=== PATIENT | female | born 1930 | race Caucasian/White ===

== ENCOUNTER 2016-07-30 10:08 | Inpatient (IN) | payer OTHER ==
[~2016-07-30 10:08] MED LIST: ACETAMINOPHEN 325 MG TAB PO ONE; CEFAZOLIN 2 GM/DEXTR 100 ML IV ONE; CHLORHEXIDINE GLUC HIBICLENS 118 ML BTL TP ONE; DEXAMETHASONE 4 MG/ML VIAL IVP ONE; FAMOTIDINE 20 MG TAB PO ONE; ROPI/epiNEPH/KETOROLAC JOINT COCKTAIL IU ONE; TRANEXAMIC ACID 3,000 MG in NS 50 ML IRR ONE; TRANEXAMIC ACID 3,000 MG/50 ML BAG IRR ONE
[2016-07-30] MEDS ORDERED: LIDOCAINE 1% 2 ML INJ ONE (10:58)
[2016-07-30] MEDS ORDERED: FAMOTIDINE 20 MG TAB ONE (10:59)
[2016-07-30] MEDS ORDERED: CEFAZOLIN 2 GM/DEXTROSE/100 ML BAG IV ONE (10:59)
[2016-07-30] MEDS ORDERED: DEXAMETHASONE 4 MG/ML VIAL ONE (10:59)
[2016-07-30] MEDS ORDERED: ACETAMINOPHEN 325 MG TAB ONE (10:59)
[2016-07-30] MEDS ORDERED: LR 1,000 ML IV ONE (11:08)
[2016-07-30] MEDS ORDERED: LIDOCAINE 1% 5 ML SDV ID PRN (11:08)
[2016-07-30] MEDS ORDERED: MIDAZOLAM 2 MG/2 ML VIAL ONE (11:47)
[2016-07-30] MEDS ORDERED: PROPOFOL/EMULSION 500 MG/50 ML BOTTLE IV ONE (12:06)
[2016-07-30 12:12] LABS: INR 1.21 (0.83-1.16); PROTIME(PATIENT) 15.3 SEC (12.0-15.0)
[2016-07-30] MEDS ORDERED: fentaNYL 100 MCG/2 ML INJ ONE (12:17)
[2016-07-30] MEDS ORDERED: epHEDrine SULFATE 10 MG/ML SYR ONE (13:04)
[2016-07-30] MEDS ORDERED: ONDANSETRON 4 MG/2 ML VIAL ONE (13:28)
[2016-07-30] MEDS ORDERED: BISACODYL 10 MG SUPP PR PRN (13:52)
[2016-07-30] MEDS ORDERED: PROMETHAZINE HCL 25 MG/ML INJ IVP PRN (13:52)
[2016-07-30] MEDS ORDERED: DIPHENOXYLATE/ATROPINE LOMOTIL 1 TAB PO PRN (13:52)
[2016-07-30] MEDS ORDERED: PHARMACY PAIN CONSULT 1 EA MISC PRN (13:52)
[2016-07-30] MEDS ORDERED: CYCLOBENZAPRINE 10 MG TAB PO PRN (13:52)
[2016-07-30] MEDS ORDERED: diphenhydrAMINE 25 MG CAP PO PRN (13:52)
[2016-07-30] MEDS ORDERED: PROMETHAZINE HCL 25 MG SUPPR PR PRN (13:52)
[2016-07-30] MEDS ORDERED: ONDANSETRON DISINTEGRATING 4 MG TAB PO PRN (13:52)
[2016-07-30] MEDS ORDERED: ONDANSETRON 4 MG/2 ML VIAL IVP PRN (13:52)
[2016-07-30] MEDS ORDERED: MAGNESIUM HYDROXIDE 30 ML UDCUP PO PRN (13:52)
[2016-07-30] MEDS ORDERED: POLYETHYLENE GLYCOL 3350 17 GM PKT PO PRN (13:52)
[2016-07-30] MEDS ORDERED: TEMAZEPAM 15 MG CAP PO PRN (13:52)
[2016-07-30] MEDS ORDERED: METOCLOPRAMIDE 10 MG/2 ML VIAL IVP PRN (13:52)
[2016-07-30] MEDS ORDERED: LACTULOSE 20 GM/30 ML UDCUP PO PRN (13:52)
--- NOTE | 2016-07-30 13:52 | POSTOPPROG ---
Post Op Note Date of Operation: 07/30/16 Surgeon: Olivia Henning Perinatal Breastfeeding Assistant: chel henning Anesthesiologist: dr. cortes Anesthesia: Spinal, Other (Specify) Pre-op Diagnosis: Left hip OA Post-op Diagnosis: geovany,e Indication: left hip pain due to OA that failed conservative measures Procedure: L PATRIZIA ant approach Findings: severe hip OA Inf/Abcess present in the surg proc area at time of surgery?: No EBL: 100-500
[2016-07-30] MEDS ORDERED: traMADol 50 MG TAB PO PRN (13:53)
[2016-07-30] MEDS ORDERED: GABAPENTIN 300 MG CAP PO PRN (13:53)
[2016-07-30] MEDS ORDERED: LR 1,000 ML IV SCH (14:00)
[2016-07-30] MEDS: oxyCODONE IR 5 MG TAB PO PRN ×2 (17:24→23:06)
[2016-07-30] MEDS: WARFARIN SODIUM 5 MG TAB PO SCH (17:25)
[2016-07-30] MEDS: ACETAMINOPHEN 325 MG TAB PO SCH ×2 (17:25→23:07)
[2016-07-30] MEDS: ceFAZolin 2 GM/DEXTROSE 100 ML IV SCH (20:27)
[2016-07-30] MEDS: FAMOTIDINE 20 MG TAB PO SCH (20:31)
[2016-07-30] MEDS: SENNOSIDES/DOCUSATE SODIUM TAB PO SCH (20:31)
[2016-07-31] MEDS: ceFAZolin 2 GM/DEXTROSE 100 ML IV SCH (04:30)
--- NOTE | 2016-07-31 05:28 | GOP ---
[f rep st] OPERATIVE REPORT DATE OF OPERATION: 07/30/2016 SURGEON: Italo Guzman MD FINANCIAL DEVELOPER: RUBEN Baca ANESTHESIA: Spinal. PREOPERATIVE DIAGNOSIS: Left hip osteoarthritis. POSTOPERATIVE DIAGNOSIS: Left hip osteoarthritis. PROCEDURE PERFORMED: Left total hip arthroplasty with x-ray. FINDINGS: ESTIMATED BLOOD LOSS: 300 cc. INDICATIONS: The patient has progressively worsening arthritis of the hip which has failed medical management. The patient understands the treatment options including continued non-operative care an d has selected surgical intervention. The patient has decided to undergo total hip arthroplasty via the direct anterior approach, understanding the risks of the procedure including, but not limited t o, neurovascular injury, infection, persistent pain, component wear and loosening, deep venous throm bosis, pulmonary embolism, limb length inequality, hip instability (including dislocation), and intr a-operative fractures. DESCRIPTION OF PROCEDURE: After proper identification of the patient including verification and mar vinicius the surgical site, the patient was brought to the operating room and placed in the supine posit ion. All bony prominences were well padded. Anesthesia was induced without complication and intrav enous prophylactic antibiotics were administered prior to skin incision. The operative leg was placed in the Trumpf Arch table extension and the well leg in a [place] leg h older. The patient was prepped and draped in the usual sterile fashion. The C-arm was draped for i ntra-operative fluoroscopy to check acetabular position, femoral component position including leg le ngth and femoral offset. Attention was then drawn to surgical exposure of the hip. An incision was made with a #10 [place] er blade starting 3 cm lateral and 3 cm distal to the anterior superior iliac spine measuring 8-10 c m and coursing distally toward the greater trochanter. The skin and subcutaneous tissues were divid ed sharply down to the fascia romero. The fascia romero was incised in line with the skin incision expo sing the underlying tensor fascia romero muscle. The muscle was bluntly elevated from the fascia and the first extracapsular Cobra retractor was placed laterally at the junction of the superior femoral neck and greater trochanter. The lateral femoral circumflex vessels were identified, cauterized, a nd divided with the Aquamantys bipolar cautery. The deep investing fascia of the TFL was divided to allow proper mobilization of the muscle preventing damage during the retraction. The reflected hea d of the rectus femoris muscle was elevated off the anterior hip capsule and a medial Cobra retracto r was placed just proximal to the lesser trochanter. The anterior capsulotomy was made sharply from the superolateral acetabulum to the saddle junction o f the superior femoral neck and greater trochanter, then coursing inferomedial towards the lesser tr ochanter. The retractors were then placed in the intracapsular position for femoral neck osteotomy. Corresponding to pre-operative templating, the osteotomy was made with the oscillating saw careful ly protecting the greater trochanter and soft tissues. The femoral head was removed from the acetab ulum with a corkscrew and confirmed to be severely arthritic with exposed bone, deformity and osteop hytes. Similar findings were confirmed in the acetabulum. The Arch table extension was then placed in 40 degrees external rotation. Attention was then drawn to the acetabular preparation. After placement of the anterior and posteri or Cobra retractors outside the labrum and intracapsular, the circumferential labrum was removed sha rply. The foveal contents were then removed and hemostasis obtained with cautery. The first reamer selected was sized using the removed femoral head. Reaming began with medializatio n and then commenced in 2 mm increments at 45 degrees of abduction and 15 degrees of anteversion usi ng fluoroscopic navigation. Reaming ceased 1 mm less than the definitive acetabular component and c orresponded to the pre-operative templating. The final acetabular component was inserted using fluo roscopy to achieve proper orientation yielding excellent purchase and stability in the acetabulum. The final acetabular liner was then placed and its seating confirmed. Attention was then turned to the femur. The Arch table extension was placed in extension and adduct ion, delivering the osteotomized femoral neck into the wound. A 2-pronged femoral elevator was plac ed at the calcar and another at the tip of the greater trochanter. The posterolateral capsule was r eleased with cautery allowing mobilization of the femur lateral and anterior for preparation. The e xternal rotators were visualized and preserved. A curette and rongeur were used to open the startin g point for broaching. Serial broaching started with the #0 broach and ended with the broach that e xhibited excellent fit in the proximal femur. A change in pitch during mallet strikes was accompani ed by the inability to advance the broach any further. The trial reduction was performed and fluoro scopic navigation was utilized to check limb length. Adjustments were made to equalize limb length accordingly. After the final trials were accepted they were removed and the wound was copiously lavaged. The fem oral component was seated to the same depth as the final broach and the femoral head was impacted on to the clean trunnion. The hip was then reduced for the final time and once more fluoroscopy was us ed to check that limb length equality was achieved. The wound was irrigated and closed in layers, the fascia romero with 2-0 Quill, the subcutaneous tissu e with 2-0 Quill, and the skin with Dermabond. Sterile dressings were applied. Final sharps and sp onge counts were accurate. The patient was then transferred to a hospital bed and brought to the re covery room in stable condition. IMPLANTS: Accolade II, size 5, at 127. Acetabular component is a 15 mm Tritanium. Liner is a Trid ent X3, 32 mm. The head is a Biolox Delta 32 mm, -4. /[id number]/MODL
[2016-07-31] MEDS: ACETAMINOPHEN 325 MG TAB PO SCH ×4 (05:40→23:31)
[2016-07-31 05:44] LABS: HEMATOCRIT 31.9 % (38.0-47.0); HEMOGLOBIN 9.9 g/dL (12.6-16.3)
[2016-07-31 05:55] LABS: INR 1.4 (0.83-1.16); PROTIME(PATIENT) 17.1 SEC (12.0-15.0)
[2016-07-31 06:22] LABS: ANION GAP 7 mEq/L (8-16); CALCIUM 8.6 mg/dL (8.5-10.4); CARBON DIOXIDE 25 mEq/l (22-31); CHLORIDE 108 mEq/L (97-110); CREATININE 0.9 mg/dL (0.6-1.0); GLOMERULAR FILTRATION RATE 60; GLUCOSE 120 mg/dL (70-100); POTASSIUM 3.6 mEq/L (3.5-5.2); SODIUM 140 mEq/L (134-144)
[2016-07-31] MEDS: FAMOTIDINE 20 MG TAB PO SCH ×2 (08:03→21:10)
[2016-07-31] MEDS: TRIAMTERENE/HCTZ 37.5/25 1 EACH CAP PO SCH (08:03)
[2016-07-31] MEDS: oxyCODONE IR 5 MG TAB PO PRN ×4 (08:03→23:30)
[2016-07-31] MEDS: SENNOSIDES/DOCUSATE SODIUM TAB PO SCH ×2 (08:03→21:10)
[2016-07-31] MEDS ORDERED: ENOXAPARIN 40 MG/0.4 ML SYR SC SCH (09:00)
[2016-07-31 11:20] VITALS: RESP 16
[2016-07-31] MEDS: WARFARIN SODIUM 5 MG TAB PO SCH (15:47)
--- NOTE | 2016-07-31 19:48 | SOAPPROG ---
SOAP Progress Note Assessment/Plan: Assessment: Analia is doing ok POD 1 s/p L PATRIZIA 1) pain management: pain is well controlled on oral pain meds 2) VTE ppx: recommend resuming coumadin and lovenox. INR this morning 1.4. Recommend stopping lovenox. continue coumadin. 3) anemia: level expected initially postop, continue to monitor. 4) d/c planning: recommend another night in the hospital. Reassess in the morning. Most likely SNF tomorrow. Plan: 07/31/16 19:45 Subjective: Analia is doing ok this morning, states she is tired, denies SOB, chest pain and N /v. Objective: Vital Signs Temp Pulse Resp BP Pulse Ox 36.6 C 73 16 84/59 L 99 07/31/16 15:59 07/31/16 15:59 07/31/16 15:59 07/31/16 15:59 07/31/16 15:59 Laboratory Results 07/31/16 04:37 07/31/16 04:37 07/30/16 07/31/16 08/01/16 05:59 05:59 05:59 Intake Total 1150 200 Output Total 1000 300 Balance 150 -100 PT 17.1 SEC (12.0-15.0) H 07/31/16 04:37 INR 1.40 (0.83-1.16) H 07/31/16 04:37 LLE: incision dressing is clean and dry, NVI, +pf/df ICD10 Worksheet Patient Problems: Problems Problem Status Onset Cancer of descending colon Acute Chronic Disease Mgmt/Transitional Care Acute Gastrointestinal hemorrhage on warfarin therapy Acute Incisional hernia Acute Wound infection after surgery Acute
[2016-08-01 04:25] VITALS: PULSE 80
[2016-08-01 05:19] LABS: HEMOGLOBIN 8.1 g/dL (12.6-16.3)
[2016-08-01 05:41] LABS: INR 1.92 (0.83-1.16); PROTIME(PATIENT) 22.1 SEC (12.0-15.0)
[2016-08-01] MEDS: ACETAMINOPHEN 325 MG TAB PO SCH ×2 (05:42→12:36)
[2016-08-01 08:31] VITALS: BP 113/63; TEMP 98.3; O2SAT 100
[2016-08-01] MEDS: TRIAMTERENE/HCTZ 37.5/25 1 EACH CAP PO SCH (09:56)
[2016-08-01] MEDS: oxyCODONE IR 5 MG TAB PO PRN (09:56)
[2016-08-01] MEDS: SENNOSIDES/DOCUSATE SODIUM TAB PO SCH (09:58)
[2016-08-01 10:01] LABS: ANION GAP 7 mEq/L (8-16); CALCIUM 8.6 mg/dL (8.5-10.4); CARBON DIOXIDE 25 mEq/l (22-31); CHLORIDE 109 mEq/L (97-110); CREATININE 0.8 mg/dL (0.6-1.0); GLOMERULAR FILTRATION RATE > 60; GLUCOSE 85 mg/dL (70-100); POTASSIUM 3.6 mEq/L (3.5-5.2); SODIUM 141 mEq/L (134-144)
[2016-08-01] MEDS: FAMOTIDINE 20 MG TAB PO SCH (11:29)
--- NOTE | 2016-08-01 12:47 | PDIAF ---
- Diagnosis Code Status: Full Code - Medication Management Discharge Medications: Medications to Continue on Transfer C/E/Zn/Cu/OM3/DHA/EPA/LUT/ZEAX [Preservision Areds 2 Softgel] 1 cap PO BID 08/12 [Last Taken 07/23/16] Cholecalciferol Vit D3 [Vitamin D3 (*)] 2,000 units PO Q2D 08/12/14 [Last Taken 07/23/16] Gabapentin [Neurontin 300 MG (*)] 300 mg PO DAILY PRN 08/12/14 [Last Taken 07/12] Hydrocodone/Acetaminophen [[place] 5/325 (*)] 1 tab PO QID PRN 08/12/14 [Last Taken 07/29/16 19:30] Triamterene/Hctz 37.5/25 [Dyazide 37.5/25 (*)] 1 cap PO DAILY 08/12/14 [Last Taken 07/29/16] Polyethylene Glycol 3350 [Miralax 17 gm (*)] 17 gm PO DAILY PRN 07/21/16 [Last Taken 07/29/16 19:00] Warfarin Sodium [Coumadin 2.5MG (*)] 2.5 mg PO SUMOWEFRSA@16 07/21/16 [Last Taken 07/20/16] Warfarin Sodium [Coumadin 5MG (*)] 5 mg PO TUTH@16 07/21/16 [Last Taken 07/17/16 ] traMADol [Ultram 50 mg (*)] 100 mg PO QID PRN 07/21/16 [Last Taken 07/29/16 19: 00] Discharge Medications: Refer to the Discharge Home Medication list for PRN reason. - Orders Services needed: Registered Nurse, Physical Therapy, Occupational Therapy Diet Recommendation: no restrictions on diet - Follow Up Care Current Providers and Referrals: Olivia Guzman MD [Medical Doctor] - 08/21/16 8:00 am Rohith Baez MD [Primary Care Provider] -
[2016-08-01] MEDS ORDERED: WARFARIN SODIUM 2.5 MG TAB PO SCH (16:00)
--- NOTE | 2016-08-01 21:03 | GDS ---
[f rep st] DISCHARGE SUMMARY ADMISSION DIAGNOSIS: Left hip osteoarthritis. DISCHARGE DIAGNOSIS: Left hip osteoarthritis. PROCEDURE: Left total hip arthroplasty. VTE PROPHYLAXIS: Recommend Coumadin and Lovenox. BRIEF DESCRIPTION OF HOSPITAL STAY: Patient was admitted for an elective joint arthroplasty. The p atient tolerated the procedure well and has passed physical therapy. The patient was given appropri ate antibiotic prophylaxis and venous thromboembolism prophylaxis. The patient's pain was well cont rolled on oral pain medication, patient was holding down food, and had urinated. Decision was made to discharge the patient. The patient was given post-operative prescriptions pre-operatively. PLAN: Please follow up as scheduled at Dr. Guzman's office August 21 at 8 a.m. /[id number]/MODL
[2016-08-05] MEDS ORDERED: WARFARIN SODIUM 5 MG TAB PO SCH (16:00)
== END 2016-08-01 13:06 | DRG 470 ==
LOC: F3N 10:08
PROVIDERS: ADMIT Orthopaedic Surgery; ATTEND Orthopaedic Surgery
PROC: 0SRB04Z Replacement of Left Hip Joint with Ceramic on Polyethylene Synthetic Substitute, Open Approach (ICD-10-PCS; principal; 2016-07-30 12:15)
DX: M16.12 Unilateral primary osteoarthritis, left hip (principal); G50.0 Trigeminal neuralgia; Z86.718 Personal history of other venous thrombosis and embolism; Z85.038 Personal history of other malignant neoplasm of large intestine
CPT/HCPCS: 97110-GP; 97116-GP; 97162-GP; 97165-GO; G8978-GP-CK; G8979-GP-CI; G8980-GP-CJ; G8987-GO-CK; G8988-GO-CJ; J0171; J0690; J1100; J1885; J2250; J2405; J2704; J2795; J3010

== ENCOUNTER 2016-10-14 10:39 | Outpatient (CLI) | payer OTHER ==
[2016-10-14] MEDS ORDERED: NALOXONE HCL 0.4 MG/ML INJ ONE (11:42)
[2016-10-14] MEDS ORDERED: FLUMAZENIL 0.5 MG/5 ML MDV IVP ONE (11:42)
[2016-10-14] MEDS ORDERED: ONDANSETRON 4 MG/2 ML VIAL ONE (11:42)
[2016-10-14] MEDS ORDERED: MIDAZOLAM 2 MG/2 ML VIAL ONE (11:43)
[2016-10-14] MEDS ORDERED: fentaNYL 100 MCG/2 ML INJ ONE ×2 (11:43)
[2016-10-14] MEDS ORDERED: GADOBUTROL 10 ML VIAL IVP ONE (11:47)
== END 2016-10-14 13:45 | disposition home or self-care (01) ==
LOC: FIMAGING 10:39
PROVIDERS: ATTEND Psychiatry & Neurology Neurology
DX: G50.0 Trigeminal neuralgia (principal); Z85.9 Personal history of malignant neoplasm, unspecified
CPT/HCPCS: 70553; A9585; J3010; J2250; J2310; J2405

== ENCOUNTER → 2016-10-30 | Outpatient (CLI) | payer OTHER ==
[~2016-10-30] MED LIST changes: -ACETAMINOPHEN 325 MG TAB PO ONE; -CEFAZOLIN 2 GM/DEXTR 100 ML IV ONE; -CHLORHEXIDINE GLUC HIBICLENS 118 ML BTL TP ONE; -DEXAMETHASONE 4 MG/ML VIAL IVP ONE; -FAMOTIDINE 20 MG TAB PO ONE; +IOPAMIDOL (ISOVUE-300) 100 ML BTL ONE; -ROPI/epiNEPH/KETOROLAC JOINT COCKTAIL IU ONE; -TRANEXAMIC ACID 3,000 MG in NS 50 ML IRR ONE; -TRANEXAMIC ACID 3,000 MG/50 ML BAG IRR ONE
== END ==
LOC: FIMAGING 09:54
PROVIDERS: ATTEND Otolaryngology
DX: K11.9 Disease of salivary gland, unspecified (principal); R93.8 Abnormal findings on diagnostic imaging of other specified body structures
CPT/HCPCS: 70491; Q9967

== ENCOUNTER → 2016-11-11 | Outpatient (CLI) | payer OTHER ==
[~2016-11-11] MED LIST changes: +GADOBUTROL 10 ML VIAL IVP ONE; -IOPAMIDOL (ISOVUE-300) 100 ML BTL ONE
== END ==
LOC: FIMAGING 18:38
PROVIDERS: ATTEND Psychiatry & Neurology Neurology
DX: G50.1 Atypical facial pain (principal); R94.02 Abnormal brain scan; K11.9 Disease of salivary gland, unspecified; Z85.9 Personal history of malignant neoplasm, unspecified
CPT/HCPCS: 70544; 70553; A9585

== ENCOUNTER → 2016-11-26 | Outpatient (CLI) | payer OTHER ==
[~2016-11-26] MED LIST changes: -GADOBUTROL 10 ML VIAL IVP ONE; +LIDOCAINE 1% 300 MG/30 ML SDV ONE
== END ==
LOC: FIMAGING 09:08
PROVIDERS: ATTEND Otolaryngology
PROC: 0C993ZX Drainage of Left Parotid Gland, Percutaneous Approach, Diagnostic (ICD-10-PCS; principal; 2016-11-26)
DX: D11.0 Benign neoplasm of parotid gland (principal)

== ENCOUNTER → 2016-12-30 | Outpatient (CLI) | payer OTHER | LOC: FIMAGING 08:10 | PROVIDERS: ATTEND Physician Assistant | DX: M79.661 Pain in right lower leg (principal); R22.41 Localized swelling, mass and lump, right lower limb; Z86.718 Personal history of other venous thrombosis and embolism; Z79.01 Long term (current) use of anticoagulants ==

== ENCOUNTER → 2017-01-05 | Outpatient (CLI) | payer OTHER | LOC: FIMAGING 15:19 | PROVIDERS: ATTEND Internal Medicine | DX: Z12.31 Encounter for screening mammogram for malignant neoplasm of breast (principal) | CPT/HCPCS: G0202 ==

== ENCOUNTER → 2017-04-02 | Outpatient (CLI) | payer OTHER | LOC: FIMAGING 13:01 | PROVIDERS: ATTEND Radiology Diagnostic Radiology | DX: R60.0 Localized edema (principal); Z79.01 Long term (current) use of anticoagulants ==

== ENCOUNTER → 2017-04-24 | Day surgery (SDC) | payer OTHER ==
[~2017-04-24] MED LIST changes: +IOPAMIDOL (ISOVUE-300) 100 ML BTL ONE; -LIDOCAINE 1% 300 MG/30 ML SDV ONE
== END | disposition home or self-care (01) ==
LOC: FIMAGING 12:35
PROVIDERS: ATTEND Radiology Diagnostic Radiology
DX: I82.411 Acute embolism and thrombosis of right femoral vein (principal)
CPT/HCPCS: J1644; Q9967

== ENCOUNTER → 2018-02-03 | Outpatient (CLI) | payer OTHER | LOC: FIMAGING 11:45 | PROVIDERS: ATTEND Internal Medicine Hematology & Oncology | DX: Z12.31 Encounter for screening mammogram for malignant neoplasm of breast (principal) ==